=== PATIENT | male | born 1995 | race Caucasian/White ===

== ENCOUNTER 2021-03-30 20:11 | Emergency (ER) | payer SELFPAY ==
[~2021-03-30] VITALS: Ht 180.3 cm; Wt 59.0 kg
[2021-03-30 20:24] VITALS: BP 164/72
[2021-03-30] MEDS ORDERED: GELATIN SPONGE,ABSORBABLE 1 SPONGE SPONGE TP ONE (20:45)
[2021-03-30] MEDS ORDERED: IBUP-1955 PO (20:46)
[2021-03-30] MEDS ORDERED: BACI30OI9 TP (20:46)
--- NOTE | 2021-03-30 20:55 | NUR ---
Patient discharged to home in stable condition. Written and verbal after care instructions given. Patient verbalizes understanding of instruction. RX given
== END 2021-03-30 20:55 | disposition home or self-care (01) ==
LOC: ER 20:22
DX: S61.201A Unspecified open wound of left index finger without damage to nail, initial encounter (principal); Z60.2 Problems related to living alone; Z79.899 Other long term (current) drug therapy; W26.0XXA Contact with knife, initial encounter; Y93.89 Activity, other specified; Y92.89 Other specified places as the place of occurrence of the external cause; Y99.8 Other external cause status